=== PATIENT | male | born 1945 | race Caucasian/White ===

== ENCOUNTER 2021-10-28 10:41 | Emergency (ER) | payer OTHER ==
[2021-10-28 11:39] LABS: HEMOGLOBIN 12.4 gm/dl (14.0-17.5); RED BLOOD COUNT 4.03 M/UL (4.20-5.50); WHITE BLOOD COUNT 6.7 K/UL (4.5-11.0)
[2021-10-28 12:03] LABS: BUN/CREATININE RATIO 29 (0-10)
[2021-10-28] MEDS ORDERED: VIBRAMYCIN 100100 MG GT (12:24)
== END 2021-10-28 12:47 | disposition home or self-care (01) ==
LOC: ER1 10:41
PROVIDERS: Physician Assistant
DX: J69.0 Pneumonitis due to inhalation of food and vomit (principal); G12.21 Amyotrophic lateral sclerosis; J39.8 Other specified diseases of upper respiratory tract; Z87.891 Personal history of nicotine dependence
CPT/HCPCS: 71045; 80053; 83605; 85025; 99285

== ENCOUNTER 2021-11-22 17:00 | Emergency (ER) | payer OTHER ==
[~2021-11-22 17:00] MED LIST: LASIX40 MG PO; VIBRAMYCIN 100100 MG GT
== END 2021-11-22 18:42 | disposition home or self-care (01) ==
LOC: ER1 17:00
DX: J39.1 Other abscess of pharynx (principal); G12.21 Amyotrophic lateral sclerosis; I50.9 Heart failure, unspecified
CPT/HCPCS: 71045; 94664; 94760; 99283

== ENCOUNTER 2021-11-24 00:16 | Inpatient (IN) | payer OTHER ==
[~2021-11-24] VITALS: Ht 182.9 cm; Wt 73.0 kg
[2021-11-24 01:05] LABS: HEMOGLOBIN 12.9 gm/dl (14.0-17.5); RED BLOOD COUNT 4.19 M/UL (4.20-5.50); WHITE BLOOD COUNT 13.2 K/UL (4.5-11.0)
[2021-11-24] MEDS ORDERED: ELIQUIS5 MG PO (09:14)
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
[2021-11-24] MEDS ORDERED: CARVEDILOL12.5 MG PO (14:25)
[2021-11-24] MEDS ORDERED: RILUZOLE50 MG PO (14:26)
[2021-11-24] MEDS ORDERED: LANSOPRAZOLE30 M1 PO (14:26)
[2021-11-24] MEDS ORDERED: ASPIRIN EC81 MG PO (14:27)
[2021-11-24] MEDS ORDERED: VITAMIN B-121000 MCG PO (14:28)
[2021-11-24] MEDS ORDERED: GLYCOPYRROLATE1 MG PO (14:28)
[2021-11-24] MEDS ORDERED: PROZAC20 MG PO (14:29)
[2021-11-24] MEDS ORDERED: ZOCOR 40 MG TAB40 MG PO (14:30)
[2021-11-25 05:54] LABS: HEMOGLOBIN 12.3 gm/dl (14.0-17.5); RED BLOOD COUNT 3.99 M/UL (4.20-5.50); WHITE BLOOD COUNT 16.4 K/UL (4.5-11.0)
[2021-11-25 06:10] LABS: BUN/CREATININE RATIO 38 (0-10)
--- NOTE | 2021-11-25 08:58 | NUR ---
PROVIDER CALLED FOR PATIENT HAVING POTASSIUM LEVEL OF 3.1 AND GAS PAINS. MESSAGE WITH ABOVE INFO AND CALL BACK INFORMATION LEFT. WILL CONTINUE TO MONITOR.
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
--- NOTE | 2021-11-26 02:56 | NUR ---
Patient resting, bed alarm on, daughter at bedside, room close to nurses station, non-skid footwear on, nightlight on, floor clear of obstacles, bed in lowest position, side rails up x 2.
[2021-11-26] MEDS ORDERED: CEFTRIAXONE (10:49)
[2021-11-26] MEDS ORDERED: FUROSEMIDE (10:49)
[2021-11-26 11:09] LABS: HEMOGLOBIN 13.6 gm/dl (14.0-17.5); RED BLOOD COUNT 4.38 M/UL (4.20-5.50); WHITE BLOOD COUNT 16.4 K/UL (4.5-11.0)
[2021-11-26 11:20] LABS: BUN/CREATININE RATIO 40 (0-10)
--- NOTE | 2021-11-26 14:43 | NUR ---
Called report to Fely at the [facility].
[2021-11-27 06:28] LABS: RED BLOOD COUNT 4.56 M/UL (4.20-5.50)
[2021-11-27 06:29] LABS: WHITE BLOOD COUNT 11.7 K/UL (4.5-11.0)
[2021-11-27 06:51] LABS: BUN/CREATININE RATIO 53 (0-10)
--- NOTE | 2021-11-27 08:04 | NUR ---
contacted [facility] and will notify supervisor pressing department
--- NOTE | 2021-11-27 08:34 | NUR ---
contacted EMS and request to spoke to logging crew supervisor and stated that she relay message and thats all what she can do.
--- NOTE | 2021-11-27 09:37 | NUR ---
Talked to Dr. Hernandez about patient needing ALS transport. He said the patient was able to go via BLS transport.
--- NOTE | 2021-11-27 09:42 | NUR ---
Called report to Kristel at [facility].
--- NOTE | 2021-11-27 09:52 | NUR ---
Faxed covid results per request of
== END 2021-11-27 09:40 | disposition short-term general hospital (02) | DRG 177 ==
LOC: ER1 00:16 → MED SURG 4 02:40 → CDU 02:40 → MED SURG 4 03:13
PROVIDERS: Emergency Medicine; Internal Medicine; ADMIT Internal Medicine
PROC: B24BZZZ Ultrasonography of Heart with Aorta (ICD-10-PCS; principal; 2021-11-24)
DX: J69.0 Pneumonitis due to inhalation of food and vomit (principal); J96.01 Acute respiratory failure with hypoxia; G12.21 Amyotrophic lateral sclerosis; I48.20 Chronic atrial fibrillation, unspecified; D64.9 Anemia, unspecified; R13.12 Dysphagia, oropharyngeal phase; E78.5 Hyperlipidemia, unspecified; I11.0 Hypertensive heart disease with heart failure; J15.0 Pneumonia due to Klebsiella pneumoniae; I50.9 Heart failure, unspecified; Z20.822 Contact with and (suspected) exposure to COVID-19; Z79.01 Long term (current) use of anticoagulants; Z93.1 Gastrostomy status; Z82.49 Family history of ischemic heart disease and other diseases of the circulatory system
CPT/HCPCS: ECHO; 36415; 36600; 71045; 80048; 82550; 82553; 82803; 83605; 83735; 83880; 84132; 84484; 85025; 85027; 85610; 85730; 86140; 87040; 87070; 87077; 87186; 87205; 93005; 93306; 94640; 94664; 94760; 96365; 96375; 99285; J0456; J0696; J1630; J1940; J2543; J3480; J7030; U0002

== ENCOUNTER 2021-12-17 16:32 | Emergency (ER) | payer OTHER ==
[~2021-12-17 16:32] MED LIST changes: +ASPIRIN EC81 MG PO; +CARVEDILOL12.5 MG PO; +CEFTRIAXONE; +ELIQUIS5 MG PO; +FUROSEMIDE; +GLYCOPYRROLATE1 MG PO; +LANSOPRAZOLE30 M1 PO; +PROZAC20 MG PO; +RILUZOLE50 MG PO; +VITAMIN B-121000 MCG PO; +ZOCOR 40 MG TAB40 MG PO
[2021-12-17 17:48] LABS: HEMOGLOBIN 11.7 gm/dl (14.0-17.5); RED BLOOD COUNT 3.74 M/UL (4.20-5.50); WHITE BLOOD COUNT 7.9 K/UL (4.5-11.0)
[2021-12-17 18:25] LABS: BUN/CREATININE RATIO 38 (0-10)
== END 2021-12-17 18:37 | disposition home or self-care (01) ==
LOC: ER1 16:32
PROVIDERS: Preventive Medicine Occupational Medicine
DX: G12.21 Amyotrophic lateral sclerosis (principal); K13.29 Other disturbances of oral epithelium, including tongue; Z20.822 Contact with and (suspected) exposure to COVID-19
CPT/HCPCS: 0240U; 71045; 80053; 85025; 86140; 94664; 99285

== ENCOUNTER 2022-02-20 15:07 | Emergency (ER) | payer MEDICARE ==
[2022-02-20 17:38] LABS: HEMOGLOBIN 13.1 gm/dl (14.0-17.5); RED BLOOD COUNT 4.32 M/UL (4.20-5.50); WHITE BLOOD COUNT 11.4 K/UL (4.5-11.0)
[2022-02-20 18:02] LABS: BUN/CREATININE RATIO 53 (0-10)
[2022-02-20] MEDS ORDERED: LASIX40 MG PO (20:10)
[2022-02-20] MEDS ORDERED: K-TAB ER20 MEQ PO (20:10)
[2022-02-20] MEDS ORDERED: LEVOFLOXACIN750 MG PO (20:10)
== END 2022-02-20 20:59 | disposition home or self-care (01) ==
LOC: ER1 15:07
PROVIDERS: Physician Assistant
DX: R05.9 Cough, unspecified (principal); I48.91 Unspecified atrial fibrillation; I50.9 Heart failure, unspecified; Z79.01 Long term (current) use of anticoagulants; E78.5 Hyperlipidemia, unspecified; Z88.8 Allergy status to other drugs, medicaments and biological substances
CPT/HCPCS: 71045; 80053; 82550; 82553; 83690; 83880; 84484; 85025; 93005; 99284